=== PATIENT | female | born 1975 | race Caucasian/White ===

== ENCOUNTER 2020-02-12 07:06 | Outpatient (CLI) | payer OTHER, SELFPAY ==
--- NOTE | 2020-02-12 07:14 | MM_ITS ---
WS: [id number] BILATERAL SCREENING DIGITAL MAMMOGRAM WITH CAD HISTORY: SCREENING COMPARISON: 01/18/2019, 01/12/2018, 01/11/2017 and 12/15/2013 Bilateral CC and MLO views submitted. Computer aided detection analyzed. Breast composition: There are scattered areas of fibroglandular density. No suspicious masses, microc alcifications or architectural distortion. Asymmetry in the anterior LEFT breast, just posterior to t he nipple has been present over multiple prior examinations. MM/[id number] IMPRESSION: BI-RADS: 2-Benign FOLLOW UP: 1 Year Follow-up
== END 2020-02-12 07:07 | disposition home or self-care (01) ==
LOC: RADSHAW 07:08
PROVIDERS: PCP Internal Medicine; Visit Provider Obstetrics & Gynecology
DX: Z12.31 Encounter for screening mammogram for malignant neoplasm of breast (principal)
CPT/HCPCS: 77067

== ENCOUNTER → 2020-09-24 09:11 | Outpatient (BNVA) | payer OTHER, SELFPAY | PROVIDERS: PCP Internal Medicine; Referring Provider Nurse Practitioner Family; Visit Provider Specialist | DX: R20.0 Anesthesia of skin (principal); R20.2 Paresthesia of skin; Z87.891 Personal history of nicotine dependence | CPT/HCPCS: 95910 ==

== ENCOUNTER → 2020-10-09 10:09 | Outpatient (BNVA) | payer OTHER, SELFPAY | PROVIDERS: PCP Internal Medicine; Referring Provider Nurse Practitioner Family; Visit Provider Orthopaedic Surgery | DX: G56.03 Carpal tunnel syndrome, bilateral upper limbs (principal); M18.0 Bilateral primary osteoarthritis of first carpometacarpal joints | CPT/HCPCS: 73130 ==

== ENCOUNTER 2020-10-09 13:34 | Outpatient (CLI) | payer OTHER, SELFPAY | END 2020-10-09 13:35 | disposition home or self-care (01) | LOC: SPT 13:34 | PROVIDERS: PCP Internal Medicine; Visit Provider Orthopaedic Surgery | DX: M18.0 Bilateral primary osteoarthritis of first carpometacarpal joints (principal) | CPT/HCPCS: L3924 ==

== ENCOUNTER 2021-02-21 07:34 | Outpatient (CLI) | payer OTHER, SELFPAY ==
--- NOTE | 2021-02-21 07:39 | MM_ITS ---
WS: [id number] BILATERAL DIGITAL SCREENING MAMMOGRAPHY WITH CAD CLINICAL INFORMATION: SCREENING HISTORY: Screening mammogram. No current complaints. COMPARISON: February 12, 2020 and . and TECHNIQUE: Bilateral CC and MLO views. FINDINGS: Scattered fibroglandular densities bilaterally. Stable asymmetric density along the posterior nipple line left breast with long-term stability. No suspicious focal mass, asymmetry, calcifications, or ar chitectural distortion. No evidence of malignancy. MM/[id number] IMPRESSION: BI-RADS: 2-Benign FOLLOW UP: 1 Year Follow-up Recommend return to annual screening mammography.
== END 2021-02-21 07:35 | disposition home or self-care (01) ==
LOC: RADSHAW 07:37
PROVIDERS: PCP Internal Medicine; Visit Provider Internal Medicine
DX: Z12.31 Encounter for screening mammogram for malignant neoplasm of breast (principal)
CPT/HCPCS: 77067

== ENCOUNTER 2021-02-24 12:00 | Outpatient (CLI) | payer OTHER, SELFPAY | END 2021-02-24 12:01 | disposition home or self-care (01) | LOC: SLEEP 02-25 10:08 | PROVIDERS: PCP Internal Medicine; Visit Provider Internal Medicine | DX: G47.10 Hypersomnia, unspecified (principal) | CPT/HCPCS: G0399 ==

== ENCOUNTER 2021-05-30 06:21 | Day surgery (SDC) | payer OTHER, SELFPAY ==
[2021-05-28 15:27] VITALS: BMI 31.9
[2021-05-30 06:38] VITALS: BP 133/98; PULSE 94; RESP 18; TEMP 36.2; O2SAT 97
[2021-05-30] MEDS: sodium chloride 0.9% 1,000 ML 30 ML IV (06:50)
--- NOTE | 2021-05-30 06:53 | P.ANESASSM_ITS ---
Pre-Anesthetic Assessment Pre-Anesthetic Assessment: Height/Weight: Height 1.68 m Weight 89.811 kg Temp Pulse Resp BP Pulse Ox 97.1 F L 94 18 133/98 97 05/30/21 06:38 05/30/21 06:38 05/30/21 06:38 05/30/21 06:38 05/30/21 06:38 Preop Diagnosis: screening Proposed Procedure: Operation Date: 05/30/21 07:30 Proposed Procedures p Colonoscopy with poss biopsy poss polpectomy(Not Applicable) - Dewayne Powers MD Was Beta Gabriel taken within 24 hours: N/A Was Clonidine taken within 24 hours: N/A Last intake: Intake Last Liquid Date 05/29/21 Last Liquid Time 19:00 Last Solid Date 05/28/21 Last Solid Time 19:00 Social: Social History: No alcohol and No tobacco Exam: Pre-Anes Outpt Exam: alert and oriented x 3 Airway: Submandibular: WNL Cervical ROM: WNL MP: 2 Dentition: Full History/ROS: No significant history except as noted Pulmonary: Pulmonary: Sleep apnea CV/HEM: CV/HEM: HTN : : None reported Hepatic: Hepatic: None reported GI: GI: GERD Metabolic: Metabolic: None reported Musc/skel: Musc/skel: None reported Neuropsych: Neuropsych: Anxiety Anesthetic Plan: ASA status: 3 Anesthesia: Anesthesia Evaluation and MAC Risk of > 500 ml blood loss (7ml/kg in children): No Meds/Allergies Current Medications: Current Medications Generic Name Dose Route Start Last Admin Trade Name Freq PRN Reason Stop Dose Admin Sodium Chloride 1,000 mls @ 30 ml s/hr 05/30/21 06:30 05/30/21 06:50 Sodium Chloride 0.9% IV 05/31/21 06:29 30 mls/hr .Q24H JOHN Administration PFSH Anesthesia PFSH: Medical History Anxiety Essential hypertension Hiatal hernia with GERD Surgical menopause Surgical History History of hysterectomy (07/07/16) LAVH WITH BSO FOR UTERUS > 250G Diagnosis: Menorrhagia, Uterine fibroids. Performed by Dr. Ballesteros at [facility] [place]. Uterus measured 324 g. Family History Grandmother Diabetes PATERNAL Family/Other Diabetes PATERNAL AUNT Breast cancer PATERNAL AUNT Mother Colon cancer Uterine cancer Father Hypertension Social History Smoking and tobacco status: former smoker Quit status (tobacco): has quit using tobacco Year quit tobacco: 1996 Alcohol intake: current Alcohol intake frequency: holidays/special occasions only Data Anesthesia Cardiac Studies: No Data to Display
--- NOTE | 2021-05-30 07:49 | PM.OPSURHP ---
Providers/Chief Complaint Admitting Physician: Dewayne Powers Primary Care Provider: Candida Saini MD Chief Complaint: colonoscopy History of Present Illness Margaret Real is a 46 year old female who presents for a screening colonoscopy due to a family history of colon cancer. Both her mother and her maternal grandmother have had colon cancer. She has had no symptoms. It has been 5 years since her last colonoscopy. Review of Systems General: Reports: 10 or more systems reviewed and unremarkable except in HPI and below Const: Denies: fever(s) Card: Denies: chest pain or irregular heart rhythm Resp: Denies: dyspnea Medications/Allergies Home Medications Medication Instructions Recorded Confirmed Last Taken Type ibuprofen 600 mg tablet 600 mg PO Q8H PRN 08/21/19 05/30/21 05/26/21 History pantoprazole 40 mg tablet,delayed 40 mg PO QDAY 08/21/19 05/30/21 05/30/21 05:00 History release venlafaxine 75 mg tablet 75 mg PO DAILY 09/02/20 05/30/21 05/29/21 History conjugated estrogens 1.25 mg tablet 1.25 mg PO DAILY #90 tab 10/04/20 05/30/21 05/29/21 Rx hydrochlorothiazide 12.5 mg capsule 25 mg PO QDAY cap 10/09/20 05/30/21 05/29/21 History cholecalciferol (vitamin D3) 25 mcg PO DAILY 05/28/21 05/30/21 05/29/21 History [Vitamin D3] [id number] 1 tab PO DAILY 05/28/21 05/30/21 05/29/21 History [Al[employer]] Allergies Allergy/AdvReac Type Severity Reaction Status Date / Time No Known Allergies Allergy Verified 05/28/21 15:29 PFSH PFSH: Medical History Anxiety Essential hypertension Hiatal hernia with GERD Surgical menopause Surgical History History of hysterectomy (07/07/16) LAVH WITH BSO FOR UTERUS > 250G Diagnosis: Menorrhagia, Uterine fibroids. Performed by Dr. Ballesteros at [facility] [place]. Uterus measured 324 g. Family History Grandmother Diabetes PATERNAL Family/Other Diabetes PATERNAL AUNT Breast cancer PATERNAL AUNT Mother Colon cancer Uterine cancer Father Hypertension Social History Smoking and tobacco status: former smoker Quit status (tobacco): has quit using tobacco Year quit tobacco: 1996 Alcohol intake: current Alcohol intake frequency: holidays/special occasions only Vital Signs Vitals Signs: Last Vital Signs Temp 97.1 F L 05/30/21 06:38 Pulse 94 05/30/21 06:38 Resp 18 05/30/21 06:38 BP 133/98 05/30/21 06:38 Pulse Ox 97 05/30/21 06:38 Weight: Weight last 48 hrs Weight 198 lb Physical Exam Const: COMMON NORMALS: no acute distress and patient oriented x3 GENERAL APPEARANCE: cooperative, comfortable and well developed HENMT: COMMON NORMALS: normocephalic and moist oral mucous membranes HEAD & SCALP: normocephalic Chest: COMMONS NORMALS: normal inspection of the chest Resp: COMMON NORMALS: normal respiratory effort and clear to auscultation bilaterally AUSCULTATION: clear to auscultation bilaterally Cardio: COMMON NORMALS: regular rate, regular rhythm, No gallops present (Cardio), No murmurs present (Cardio) and No rub (Cardio) RATE: regular rate RHYTHM: regular rhythm Extremity: COMMON NORMALS: normal to inspection Neuro: COMMON NORMALS: patient oriented x3 and no focal motor deficits Skin: COMMON NORMALS: no rashes or lesions noted GENERAL SKIN EXAM: no rashes or lesions noted A&P Assessment and plan (1) Family history of colon cancer: We will proceed with a repeat colonoscopy. We have discussed the risks of bleeding, perforation, and sedation. She had no further questions and wishes to proceed. 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
[2021-05-30 08:17] VITALS: BP 135/96; PULSE 85; RESP 16; TEMP 36.2; O2SAT 99
[2021-05-30 08:31] VITALS: BP 132/95; PULSE 78; RESP 18; TEMP 36.2; O2SAT 96
--- NOTE | 2021-05-30 17:25 | ANE.PACU2 ---
Inpatient post-anesthesia follow up: Airway intact: Yes Vital signs: Temperature 97.1 F Pulse Rate 78 Respiratory Rate 18 Blood Pressure 132/95 Pulse Oximetry 96 Oxygen Delivery Me thod Room Air Oxygen Flow Rate Fraction of Inspir ed Oxygen Hydration adequate: Yes Nausea and vomiting: No Pain level: 2 Mental status: Baseline
== END 2021-05-30 08:42 | disposition home or self-care (01) ==
PROVIDERS: PCP Internal Medicine; Visit Provider Family Medicine
PROC: 0DJD8ZZ Inspection of Lower Intestinal Tract, Via Natural or Artificial Opening Endoscopic (ICD-10-PCS; CPT 45378; principal; 2021-05-30 07:30)
DX: Z12.11 Encounter for screening for malignant neoplasm of colon (principal); Z80.0 Family history of malignant neoplasm of digestive organs; I10 Essential (primary) hypertension; K44.9 Diaphragmatic hernia without obstruction or gangrene; K21.9 Gastro-esophageal reflux disease without esophagitis; G47.30 Sleep apnea, unspecified; Z87.891 Personal history of nicotine dependence
CPT/HCPCS: 12345; 45378; 96360; 96361; J2704; J7030

== ENCOUNTER 2021-12-10 15:13 | Outpatient (RCR) | payer OTHER, SELFPAY | END 2021-12-23 23:59 | disposition home or self-care (01) | LOC: SPT 15:13 | PROVIDERS: PCP Internal Medicine; Referring Provider Internal Medicine; Visit Provider Internal Medicine | DX: M54.31 Sciatica, right side (principal) | CPT/HCPCS: 97110; 97161 ==

== ENCOUNTER 2021-12-24 06:00 | Outpatient (RCR) | payer OTHER, SELFPAY | END 2022-01-22 23:59 | disposition home or self-care (01) | LOC: SPT 06:00 | PROVIDERS: PCP Internal Medicine; Referring Provider Internal Medicine; Visit Provider Internal Medicine | DX: M54.31 Sciatica, right side (principal) | CPT/HCPCS: 97110 ==

== ENCOUNTER 2022-01-29 10:48 | Outpatient (CLI) | payer OTHER, SELFPAY ==
[2022-01-29 11:23] LABS: Basophils % 0.7 %; Eosinophils # 0.1 10^3/uL (0.0-0.8); Eosinophils % 1.7 %; Hematocrit 40.3 % (37.0-47.0); Hemoglobin 13.7 g/dL (11.5-15.3); Lymphocytes # 1.1 10^3/uL (0.8-4.8); Lymphocytes % 26.2 %; Mean Corpuscular Hemoglobin 29.5 pg (28.0-34.0); Mean Corpuscular Volume 86.7 fl (81-99); Monocytes # 0.5 10^3/uL (0.2-0.9); Neutrophils # 2.43 10^3/uL (1.8-7.7); Neutrophils % 59.7 %; Nucleated Red Blood Cells % 0 %; Platelet Count 321 10^3/cmm (130-400); Red Blood Count 4.65 10^6/uL (4.1-5.3); Red Cell Distribution Width 12.7 % (12.1-15.1); White Blood Count 4.1 10^3/uL (4.0-10.0)
[2022-01-29 11:25] LABS: Erythrocyte Sedimentation Rate 2 mm/hr (0-15)
== END 2022-01-29 10:49 | disposition home or self-care (01) ==
LOC: LAB 10:51
PROVIDERS: PCP Internal Medicine; Visit Provider Nurse Practitioner Family
DX: M79.662 Pain in left lower leg (principal)
CPT/HCPCS: 36415; 85025; 85651; 86140; 86431

== ENCOUNTER 2022-02-04 11:01 | Outpatient (CLI) | payer OTHER, SELFPAY ==
--- NOTE | 2022-02-04 11:10 | XR_ITS ---
WS: [id number] Left leg including the tibia and fibula, AP and lateral views, 02/04/2022 Clinical Data: L LEG PAIN Comparison: None. Findings: No fractures or dislocations are seen. The tibia and fibula are intact. The soft tissues are normal. XR/XR tibia fibula LT 2V [id number] Impression: Negative for fracture.
== END 2022-02-04 11:02 | disposition home or self-care (01) ==
PROVIDERS: PCP Internal Medicine; Visit Provider Nurse Practitioner Family
DX: M79.605 Pain in left leg (principal)
CPT/HCPCS: 73590

== ENCOUNTER 2022-02-25 07:51 | Outpatient (CLI) | payer OTHER, SELFPAY ==
--- NOTE | 2022-02-25 07:59 | MM_ITS ---
WS: [id number] Bilateral screening 3D tomosynthesis digital mammogram, 02/25/2022 Clinical Data: SCREENING Comparison: 02/21/2021, 02/12/2020, 01/18/2019, 01/12/2018, 01/11/2017. Findings: The breast parenchymal pattern shows fibroglandular tissue. No spiculated masses or clustered calcifi cations are seen. There are no secondary signs of carcinoma. MM/[place] [id number] Impression: 1. Negative bilateral mammogram unchanged. 2. Recommend annual screening mammograms. BIRADS: 1-Negative FOLLOW UP: 1 Year Follow-up The CAD instrument checker was used.
== END 2022-02-25 07:52 | disposition home or self-care (01) ==
LOC: RAD 07:52
PROVIDERS: PCP Internal Medicine; Visit Provider Nurse Practitioner Women's Health
DX: Z12.31 Encounter for screening mammogram for malignant neoplasm of breast (principal)
CPT/HCPCS: 77063; 77067

== ENCOUNTER 2022-02-26 12:55 | Outpatient (CLI) | payer OTHER, SELFPAY ==
--- NOTE | 2022-02-26 13:04 | MR_ITS ---
WS: [id number] MRI LUMBAR SPINE NONCONTRAST HISTORY: DDD,LUMBOSACRAL SPINE W/RADICULOPATHY/L LEG PAIN/R SCIATICA COMPARISON: None available. TECHNIQUE: Sagittal and axial multisequence imaging is submitted. Normal lumbar alignment with no compression fractures or marrow edema. Disc spaces and vertebral body heights are well-preserved. Conus terminates normally at L1. L1-L2: Normal. L2-L3: Normal. L3-L4: Normal. L4-L5: Mild disc bulging with a shallow RIGHT subarticular recess and proximal foramen disc protrusio n and annular fissure. Disc protrusion is very minimally touching the traversing RIGHT L5 nerve root in the subarticular recess. Mild ligamentum flavum hypertrophy at this level. L5-S1: Mild annular disc bulge with a very shallow RIGHT foraminal disc protrusion. Disc is minimally contacting the traversing RIGHT S1 nerve root. Small amount of fluid in the L5-S1 facet joints. Paravertebral soft tissues are normal. 8mm RIGHT cortical cyst mid kidney. MR/MR lumbar spine wo con* [id number] IMPRESSION: 1. RIGHT foraminal disc protrusion with annular fissure at L4-5 with minimal c ontact on the traversing RIGHT L5 nerve root in the subarticular recess. 2. Additional small proximal RIGHT foraminal disc protrusion at L5-S1 with min imal contact on the S1 nerve root. 3. No fracture.
== END 2022-02-26 12:56 | disposition home or self-care (01) ==
LOC: RAD 13:00
PROVIDERS: PCP Internal Medicine; Visit Provider Internal Medicine
DX: M51.17 Intervertebral disc disorders with radiculopathy, lumbosacral region (principal); M79.605 Pain in left leg; M51.26 Other intervertebral disc displacement, lumbar region
CPT/HCPCS: 72148

== ENCOUNTER 2022-02-27 06:29 | Outpatient (CLI) | payer OTHER, SELFPAY ==
[2022-02-27 07:07] LABS: Basophils % 0.8 %; Eosinophils # 0.1 10^3/uL (0.0-0.8); Eosinophils % 2.2 %; Hemoglobin 13.1 g/dL (11.5-15.3); Lymphocytes # 1.8 10^3/uL (0.8-4.8); Lymphocytes % 49.4 %; Mean Corpuscular HGB Conc 32.8 g/dL (30.0-36.0); Mean Corpuscular Hemoglobin 29.4 pg (28.0-34.0); Mean Corpuscular Volume 89.9 fl (81-99); Monocytes # 0.5 10^3/uL (0.2-0.9); Monocytes % 12.5 %; Neutrophils # 1.25 10^3/uL (1.8-7.7); Neutrophils % 34.8 %; Nucleated Red Blood Cells % 0 %; Platelet Count 262 10^3/cmm (130-400); Red Blood Count 4.45 10^6/uL (4.1-5.3); Red Cell Distribution Width 13.2 % (12.1-15.1); White Blood Count 3.6 10^3/uL (4.0-10.0)
[2022-02-27 07:39] LABS: Alanine Aminotransferase 24 U/L (0-33); Albumin Level 4.3 g/dL (3.5-5.2); Alkaline Phosphatase 54 IU/L (35-105); Anion Gap 11.8 (5-19); Aspartate Amino Transferase 21 U/L (0-32); Blood Urea Nitrogen 14 mg/dL (6-20); Calcium 9.1 mg/dL (8.5-10.5); Carbon Dioxide 28 mmol/L (22-29); Chloride 104 mmol/L (98-107); Chol HDL Ratio 3.46 mg/dL (0.0-4.40); Cholesterol 232 mg/dL (0-200); Globulin 2.5 g/dL (1.3-4.6); Glomerular Filtration Rate 132.2 mL/min (90-130); Glucose 101 mg/dL (65-115); HDL Cholesterol 67 mg/dL (60-100); LDL Cholesterol Calculated 140 mg/dL (50-129); LDL HDL Ratio 2.09 RATIO (0.00-3.22); Osmolality Calculated 291 mOsm/kg (285-295); Potassium 3.8 mmol/L (3.5-5.1); Sodium 140 mmol/L (136-145); Thyroid Stimulating Hormone 2.77 uIU/mL (0.27-4.20); Total Bilirubin 0.2 mg/dL (0.15-1.2); Total Protein 6.8 g/dL (6.6-8.7); Triglycerides 123 mg/dL (0-150)
[2022-02-27 08:44] LABS: Free T4 Free Thyroxine 0.88 ng/dL (0.82-1.77)
== END 2022-02-27 06:30 | disposition home or self-care (01) ==
PROVIDERS: PCP Internal Medicine; Visit Provider Internal Medicine
DX: E03.9 Hypothyroidism, unspecified (principal); R53.83 Other fatigue
CPT/HCPCS: 36415; 80053; 80061; 84439; 84443; 85025

== ENCOUNTER → 2022-04-07 07:48 | Outpatient (BNVA) | payer OTHER, SELFPAY | PROVIDERS: PCP Internal Medicine; Visit Provider Physician Assistant | DX: M54.16 Radiculopathy, lumbar region (principal) | CPT/HCPCS: 72110 ==

== ENCOUNTER → 2023-03-14 13:44 | Outpatient (BNVA) | payer OTHER, SELFPAY | PROVIDERS: PCP Internal Medicine; Visit Provider Emergency Medicine | DX: S99.922A Unspecified injury of left foot, initial encounter (principal); X58.XXXA Exposure to other specified factors, initial encounter | CPT/HCPCS: 73630 ==